=== PATIENT | female | born 1930 | race American Indian/Alaskan Native ===

== ENCOUNTER 2016-10-26 23:48 | Emergency (ER) | payer MEDICARE, MEDICAID ==
[2016-10-26 23:58] VITALS: BP 148/66
[2016-10-27] MEDS ORDERED: Naproxen 500 MG Tab PO ONE (00:23)
--- NOTE | 2016-10-27 00:28 | EDM.PDOC ---
ED HPI GENERAL MEDICAL PROBLEM - General Chief Complaint: Neck Problem Stated Complaint: NECK PAIN Time Seen by Provider: 10/27/16 00:28 Source of Information: Reports: Patient, Family History Limitations: Reports: No limitations - History of Present Illness INITIAL COMMENTS - FREE TEXT/NARRATIVE: This 86 yo female patient reports to the ED with right sided neck pain. The patient currently rates her pain at a 4/10. The patient reports she was in [place] earlier today and had a filter removed and replaced in the right neck vein. The patient reports her pain was about a 5/10 earlier, but she took 2 Tylenol to bring her pain down to a 4/10. The patient's family has called [facility] in [place]. [facility] reported to the family that they could do an ultrasound of the neck to look for any abnormalities, but they did not expect anything bad at this point. 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 Right Neck Pain Score (Numeric/FACES): 4 - Related Data Allergies Allergy/AdvReac Type Severity Reaction Status Date / Time No Known Allergies Allergy Verified 10/26/16 23:59 Home Meds: Home Meds Cetirizine [ZyrTEC] 1 tab PO DAILY 08/10/16 [History] Metoprolol Succinate [Toprol XL 50mg] 1 tab PO DAILY 08/10/16 [History] amLODIPine [Norvasc] 1 tab PO DAILY 08/10/16 [History] atorvaSTATin [Lipitor] 1 tab PO DAILY 08/10/16 [History] Warfarin [Coumadin] 2 mg PO DAILY 10/26/16 [History] Past Medical History - Past Health History Medical/Surgical History: Denies Medical/Surgical History Cardiovascular History: Reports: Blood clots/VTE/DVT, High cholesterol, 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 hip fx and rt. wrist. Oncologic (Cancer) History: Reports: Breast - Infectious Disease History Infectious Disease History: Reports: Chicken pox, Measles, Mumps - Past Surgical History GI Surgical History: Reports: Appendectomy Other GI Surgeries/Procedures: spleenectomy Musculoskeletal Surgical History: Reports: Hip replacement Social & Family History - Family History Family Medical History: Noncontributory - Tobacco Use Smoking Status *Q: Never Smoker Years of Tobacco use: 60 Packs/Tins Daily: 0.2 Second Hand Smoke Exposure: No - Caffeine Use Caffeine Use: Reports: Coffee - Recreational Drug Use Recreational Drug Use: No ED ROS GENERAL - Review of Systems Review Of Systems: ROS reveals no pertinent complaints other than HPI. ED EXAM, GENERAL - Physical Exam Exam: See Below Exam Limited By: No limitations General Appearance: alert, WD/WN, mild distress, thin Eye Exam: bilateral eye: EOMI, normal inspection, PERRL Ears: normal external exam, normal canal, hearing grossly normal, normal TMs Nose: normal inspection, normal mucosa, no blood Throat/Mouth: Normal inspection, Normal lips, Normal teeth, Normal gums, Normal oropharynx, Normal voice, No airway compromise Head: atraumatic, normocephalic Neck: supple, tender lateral (near surgical site ), other (there was some mild swelling over the area. Auscultation of the neck did not reveal any abnormalities.) Respiratory/Chest: no respiratory distress, lungs clear, normal breath sounds, no accessory muscle use, chest non-tender Cardiovascular: normal peripheral pulses, regular rate, rhythm, no edema, no gallop, no JVD, no murmur, no rub GI/Abdominal: normal bowel sounds, soft, non tender, no organomegaly, no distention, no abnormal bruit, no mass (Female) Exam: Deferred Rectal (Female) Exam: Deferred Extremities: normal inspection, normal range of motion, non-tender, normal capillary refill, no pedal edema Neurological: alert, oriented, CN II-XII intact, normal cognition, normal gait, normal reflexes, no motor/sensory deficits Psychiatric: normal affect, normal mood Skin Exam: Warm, Dry, Intact, Normal color, No rash Lymphatic: no adenopathy Course - Vital Signs Last Recorded V/S: Last Vital Signs Temp 37.2 C 10/26/16 23:51 Pulse 71 10/26/16 23:51 Resp 18 10/26/16 23:51 BP 148/66 H 10/26/16 23:51 Pulse Ox 94 L 10/26/16 23:51 - Orders/Labs/Meds Meds: Medications Discontinued Medications Generic Name Dose Route Start Last Admin Trade Name Pj PRN Reason Stop Dose Admin Naproxen 500 mg 10/27/16 00:23 Naprosyn PO 10/27/16 00:24 ONETIME ONE Departure - Departure Time of Disposition: 00:24 Disposition: Home, Self-Care 01 Condition: fair Clinical Impression: Neck pain on right side Forms: ED Department Discharge Care Plan Goals: The patient and family were advised of the examination results during the visit. The patient was given an oral dose of Naproxen while in the ED. The patient was encouraged to continue to use the ice pack. If the patient has any additional symptoms or further concerns, the patient should follow-up with her primary care facility or return to the emergency department.
== END 2016-10-27 00:33 | disposition home or self-care (01) ==
LOC: DL.ED 23:48
DX: M54.2 Cervicalgia (principal); E78.00 Pure hypercholesterolemia, unspecified; I10 Essential (primary) hypertension; Z79.01 Long term (current) use of anticoagulants; Z79.899 Other long term (current) drug therapy; Z90.49 Acquired absence of other specified parts of digestive tract
CPT/HCPCS: 99283; A9270; 99282

== ENCOUNTER 2019-06-19 08:10 | Inpatient (IN) | payer MEDICARE, MEDICAID ==
--- NOTE | 2019-06-19 11:56 | PCM.HP ---
H&P History of Present Illness - General Date of Service: 06/19/19 - History of Present Illness Initial Comments - Free Text/Narative: Patient transferred from [place]. Was admitted with sepsis secondary to acute cholecystitis. Blood culture was positive and infectious disease consulted. Has been on intravenous antibiotics. Patient was considered very sick and could not have surgery. He ended up having placement of cholecystostomy tube. This was recommended by general surgery. Patient's hospitalization was complicated by development of pneumonia, bilateral pleural effusion and C. difficile colitis. Patient is admitted to swing bed for continuation of intravenous antibiotics and physical/occupational therapy. Patient will continue with intravenous antibiotics for another 8 days. - Related Data Allergies/Adverse Reactions: Allergies Allergy/AdvReac Type Severity Reaction Status Date / Time tramadol Allergy Hallucinati Verified 06/19/19 09:23 ons Home Medications: Home Meds Cetirizine [ZyrTEC] 10 mg PO BEDTIME PRN 08/10/16 [History] Metoprolol Succinate [Toprol XL 50mg] 50 mg PO DAILY 08/10/16 [History] amLODIPine [Norvasc] 5 mg PO DAILY 08/10/16 [History] atorvaSTATin [Lipitor] 10 mg PO DAILY 08/10/16 [History] Acetaminophen [Acetaminophen Extra Strength] 500 mg PO BID PRN 06/19/19 [History ] Enoxaparin Sodium [Lovenox] 30 mg SQ DAILY 06/19/19 [History] Levothyroxine 12.5 mcg PO ACBREAKFAST 06/19/19 [History] Sennosides/Docusate Sodium [Senna-S] 1 tab PO BID PRN 06/19/19 [History] Vancomycin [Vancomycin 50 MG/ML Soln] 125 mg PO QID 06/19/19 [History] Warfarin [Coumadin] 3 mg PO DAILY 06/19/19 [History] Past Medical History - Past Health History Medical/Surgical History: Denies Medical/Surgical History Cardiovascular History: Reports: Blood Clots/VTE/DVT, High Cholesterol, 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 hip fx and rt. wrist. Hematologic History: Reports: Blood Transfusion(s) Oncologic (Cancer) History: Reports: Breast - Infectious Disease History Infectious Disease History: Reports: C-Difficile, Chicken Pox, Measles, Mumps - Past Surgical History GI Surgical History: Reports: Appendectomy, Other (See Below) Other GI Surgeries/Procedures: spleenectomy; cholecystitis- stent and biliary drain placed-not surgical candidate Musculoskeletal Surgical History: Reports: Hip Replacement Social & Family History - Family History Family Medical History: Noncontributory - Tobacco Use Smoking Status *Q: Former Smoker Used Tobacco, but Quit: Yes Month/Year Tobacco Last Used: 2012 Second Hand Smoke Exposure: No - Caffeine Use Caffeine Use: Reports: Coffee - Recreational Drug Use Recreational Drug Use: No H&P Review of Systems - Review of Systems: Review Of Systems: See Below General: Reports: No Symptoms, Malaise, Weakness Cardiovascular: Reports: No Symptoms Gastrointestinal: Reports: Abdominal Pain Musculoskeletal: Reports: No Symptoms Skin: Reports: No Symptoms Psychiatric: Reports: No Symptoms Hematologic/Lymphatic: Reports: No Symptoms Exam - Exam Exam: See Below - Vital Signs Vital Signs: Last Vital Signs Temp 37.1 C 06/19/19 11:08 Pulse 88 06/19/19 11:08 Resp 20 06/19/19 11:08 BP 125/56 L 06/19/19 11:08 Pulse Ox 95 06/19/19 11:08 Weight: 45.813 kg - Exam General: Alert, Oriented, Cooperative Neck: Supple Lungs: Clear to Auscultation, Normal Respiratory Effort Cardiovascular: Regular Rate, Regular Rhythm GI/Abdominal Exam: Normal Bowel Sounds, Soft, Non-Tender, No Organomegaly, No Distention, No Abnormal Bruit, No Mass, Pelvis Stable, Other (He has a cholecystostomy tube in place) Back Exam: Normal Inspection, Full Range of Motion, NT Extremities: Normal Inspection, Normal Range of Motion, Non-Tender, No Pedal Edema, Normal Capillary Refill Skin: Warm, Dry, Intact Psychiatric: Alert, Normal Affect, Normal Mood Problem List Initiated/Reviewed/Updated: Yes Assessment/Plan Comment:: Acute cholecystitis/Choledocholithiasis, possible cholangitis -Patient presented with right upper quadrant pain, nausea, emesis, developed fever of 100.8. Elevated LFTs and leukocytosis of 14,000. CT scan suggestive of cholecystitis. Bilirubin elevation of 1.8 with, now normalized alkaline phosphatase suggestive of past stone or sludge. -Got RUQ US, showed large avascular gallbladder mass/sludgeball with gallbladder wall thickening and wall hyperemia. Gallbladder wall thickness measures 4.3 mm. Small amount of pericholecystic fluid. Negative sonographic Culver's sign. -Got MRCP, showed choledocholithiasis with a solitary 2 mm stone in the distal common bileduct just proximal to the ampulla. Associated stable mild biliary ductal dilatation. Mild dilatation of distal main pancreatic duct is also noted. -Surgery consulted -GI consulted, ERCP done with stent placement -Surgery thinks she is too high risk for sugery, HIDA scan suggestive of cholecystitis. IR consulted, now s/p drainage. -needs stent removed in 2-3 months -Bile culturesgrowing2 different strains of Klebsiella pneumonia and enterococcus faecium -ContinueZosyn: plan is to continue for 10-14 from cholecystostomy tube placement (06/14) PICC line placed Sepsis Blood culture was positive Pancreatitis -From the ERCP. Lipase elevated. Treated conservatively Hematemesis Was seen by GI. EGD normal obtain EGD Acute Hypoxemic Respiratory Failure Acute diastolic CHF Bilateral pneumonia -New 06/08/19. Had CTA with bilateral upper lobe and LEFT lower lobe pneumonia. Bilateral lower lobe mucus plugging with complete collapse of the RIGHT lower lobe, partial collapse of the LEFT lower lobe and subsegmental upper lobe atelectasis. Moderate to large bilateral pleural effusions. IV zosyn for another 8 days C diff diarrhea -Continue oralVancomycin for 1 week after stopping IV antibiotics Hx of Acute Blood Loss Anemia -2017. EGD normal. Hgb was 4. Required multiple blood transfusion. Etiology never found. Follows with Dr Castañeda for [facility]. Hx of pulmonary embolism on Coumadin -Dx 2016.On warfarin (reversing INR for tentative IR and surgery procedures) Hypothyroidism -Continue home Synthroid Hypertension Metoprolol
[2019-06-19] MEDS ORDERED: Ondansetron 4 MG Tab.DIS PO PRN (12:06)
[2019-06-19] MEDS ORDERED: Acetaminophen 325 MG Tab PO PRN (12:06)
[2019-06-19] MEDS ORDERED: Acetaminophen/HYDROcodone 325-10 MG Tab PO PRN (12:06)
[2019-06-19] MEDS ORDERED: Docusate Sodium 100 MG Cap PO PRN (12:06)
[2019-06-19] MEDS ORDERED: Loratadine 10 MG Tab PO PRN (12:13)
[2019-06-19] MEDS ORDERED: Vancomycin 125 MG Cap PO SCH (13:00)
[2019-06-19] MEDS: Piperacillin/Tazobactam 3.375 GM in Sodium Chloride 0.9% 100 ML IV SCH ×2 (13:51→22:11)
[2019-06-19] MEDS ORDERED: Warfarin 2 MG Tab PO ONE (14:00)
[2019-06-19] MEDS: Vancomycin 125 MG Cap PO SCH ×2 (17:36→22:05)
[2019-06-19] MEDS ORDERED: MAG HYDROX PO PRN ×3 (20:43)
[2019-06-19] MEDS ORDERED: ALUM HYDROX PO PRN ×3 (20:43)
[2019-06-19] MEDS ORDERED: LIDOCAINE PO PRN ×3 (20:43)
[2019-06-19] MEDS ORDERED: DIPHENHYDRAMINE PO PRN ×3 (20:43)
[2019-06-19] MEDS ORDERED: SIMETH PO PRN ×3 (20:43)
[2019-06-19] MEDS: atorvaSTATin 10 MG Tab PO SCH (22:05)
[2019-06-19] MEDS: Enoxaparin 30 MG/0.3 ML Syringe SUBCUT SCH (22:06)
[2019-06-19] MEDS ORDERED: Lidocaine 2% 30 ML, Alum Hydrox/Mag Hydrox/Simeth 30 ML, diphenhydrAMINE 75 MG PO PRN ×3 (23:09)
[2019-06-20] MEDS: Piperacillin/Tazobactam 3.375 GM in Sodium Chloride 0.9% 100 ML IV SCH ×3 (05:59→22:11)
[2019-06-20] MEDS: Levothyroxine 25 MCG Tab PO SCH (06:10)
[2019-06-20] MEDS ORDERED: Enoxaparin 30 MG/0.3 ML Syringe SUBCUT SCH (09:00)
[2019-06-20] MEDS: Vancomycin 125 MG Cap PO SCH ×4 (09:39→22:21)
[2019-06-20] MEDS: amLODIPine 5 MG Tab PO SCH (09:39)
[2019-06-20] MEDS: Enoxaparin 30 MG/0.3 ML Syringe SUBCUT SCH ×2 (09:40→22:21)
[2019-06-20] MEDS: Metoprolol Succinate 50 MG Tab.ER PO SCH (09:40)
[2019-06-20] MEDS ORDERED: Warfarin 5 MG Tab PO ONE (14:00)
[2019-06-20] MEDS ORDERED: Warfarin 2 MG Tab PO ONE (14:00)
[2019-06-20] MEDS: atorvaSTATin 10 MG Tab PO SCH (22:21)
[2019-06-21] MEDS: Piperacillin/Tazobactam 3.375 GM in Sodium Chloride 0.9% 100 ML IV SCH ×3 (06:02→21:50)
[2019-06-21] MEDS: Levothyroxine 25 MCG Tab PO SCH (06:05)
[2019-06-21] MEDS: Vancomycin 125 MG Cap PO SCH ×4 (09:38→20:35)
[2019-06-21] MEDS: amLODIPine 5 MG Tab PO SCH (09:39)
[2019-06-21] MEDS: Metoprolol Succinate 50 MG Tab.ER PO SCH (09:39)
[2019-06-21] MEDS: Enoxaparin 30 MG/0.3 ML Syringe SUBCUT SCH ×2 (09:40→20:36)
[2019-06-21] MEDS: Sodium Chloride 0.9% 10 ML Syringe FLUSH PRN ×2 (13:58→14:35)
[2019-06-21] MEDS ORDERED: Warfarin 2 MG Tab PO ONE (14:00)
[2019-06-21] MEDS: atorvaSTATin 10 MG Tab PO SCH (20:35)
[2019-06-22] MEDS: Levothyroxine 25 MCG Tab PO SCH (06:12)
[2019-06-22] MEDS: Piperacillin/Tazobactam 3.375 GM in Sodium Chloride 0.9% 100 ML IV SCH ×3 (06:12→21:01)
[2019-06-22] MEDS: Vancomycin 125 MG Cap PO SCH ×4 (08:58→20:58)
[2019-06-22] MEDS: Metoprolol Succinate 50 MG Tab.ER PO SCH (08:58)
[2019-06-22] MEDS: Enoxaparin 30 MG/0.3 ML Syringe SUBCUT SCH (08:59)
[2019-06-22] MEDS: amLODIPine 5 MG Tab PO SCH (08:59)
[2019-06-22] MEDS: Sodium Chloride 0.9% 10 ML Syringe FLUSH PRN ×2 (08:59→15:02)
[2019-06-22] MEDS ORDERED: Warfarin 2 MG Tab PO ONE (14:00)
[2019-06-22] MEDS: atorvaSTATin 10 MG Tab PO SCH (20:58)
[2019-06-23] MEDS: Levothyroxine 25 MCG Tab PO SCH (05:32)
[2019-06-23] MEDS: Piperacillin/Tazobactam 3.375 GM in Sodium Chloride 0.9% 100 ML IV SCH ×3 (05:33→21:02)
[2019-06-23] MEDS: amLODIPine 5 MG Tab PO SCH (09:03)
[2019-06-23] MEDS: Metoprolol Succinate 50 MG Tab.ER PO SCH (09:04)
[2019-06-23] MEDS: Vancomycin 125 MG Cap PO SCH ×4 (09:05→21:03)
[2019-06-23] MEDS ORDERED: Warfarin 2 MG Tab PO ONE (14:00)
[2019-06-23] MEDS: atorvaSTATin 10 MG Tab PO SCH (21:03)
[2019-06-24] MEDS: Levothyroxine 25 MCG Tab PO SCH (05:37)
[2019-06-24] MEDS: Piperacillin/Tazobactam 3.375 GM in Sodium Chloride 0.9% 100 ML IV SCH ×3 (05:37→21:46)
[2019-06-24] MEDS: amLODIPine 5 MG Tab PO SCH (09:15)
[2019-06-24] MEDS: Metoprolol Succinate 50 MG Tab.ER PO SCH (09:15)
[2019-06-24] MEDS: Vancomycin 125 MG Cap PO SCH ×4 (09:16→20:50)
[2019-06-24] MEDS ORDERED: Warfarin 2 MG Tab PO ONE (14:00)
[2019-06-24] MEDS: Sodium Chloride 0.9% 10 ML Syringe FLUSH PRN ×2 (14:58→21:46)
[2019-06-24] MEDS: atorvaSTATin 10 MG Tab PO SCH (20:50)
[2019-06-25] MEDS: Levothyroxine 25 MCG Tab PO SCH (05:33)
[2019-06-25] MEDS: Piperacillin/Tazobactam 3.375 GM in Sodium Chloride 0.9% 100 ML IV SCH ×3 (05:35→21:36)
[2019-06-25] MEDS: Sodium Chloride 0.9% 10 ML Syringe FLUSH PRN ×4 (05:35→21:36)
[2019-06-25] MEDS: Vancomycin 125 MG Cap PO SCH ×4 (08:48→21:31)
[2019-06-25] MEDS: Metoprolol Succinate 50 MG Tab.ER PO SCH (08:48)
[2019-06-25] MEDS: amLODIPine 5 MG Tab PO SCH (08:48)
--- NOTE | 2019-06-25 10:15 | PCM.PN ---
- General Info Date of Service: 06/25/19 Admission Dx/Problem (Free Text): Cholecystitis status post cholecystostomy Subjective Update: Patient feels better. She reported some throat discomfort, and patient and family think is related to intubation during previous hospital stay. Patient continues to have some pain at the site of the drain in her abdominal wall. She feels a little stronger. She was seen by outpatient ID today, and she will need another week of IV antibiotics. - Patient Data Vitals - Most Recent: Last Vital Signs Temp 36.2 C 06/25/19 07:49 Pulse 81 06/25/19 08:48 Resp 24 H 06/25/19 07:49 BP 134/65 06/25/19 08:48 Pulse Ox 96 06/25/19 07:49 Weight - Most Recent: 46.085 kg I&O - Last 24 Hours: Intake & Output 06/24/19 06/25/19 06/25/19 22:59 06:59 14:59 Intake Total 409 201 Output Total 15 10 20 Balance 394 191 -20 Lab Results Last 24 Hours: Laboratory Results - last 24 hr 06/25/19 Range/Units 06:55 PT 25.5 H (9.0-12.0) SEC INR 2.6 H (0.9-1.2) Med Orders - Current: Current Medications Acetaminophen (Tylenol) 650 mg PO Q4H PRN PRN Reason: Pain (Mild 1-3)/fever Hydrocodone Bitart/Acetaminophen ([place] 325-10 Mg) 1 tab PO Q4H PRN PRN Reason: Pain (moderate 4-6) Amlodipine Besylate (Norvasc) 5 mg PO DAILY [facility] Last Admin: 06/25/19 08:48 Dose: 5 mg Atorvastatin Calcium (Lipitor) 10 mg PO BEDTIME [facility] Last Admin: 06/24/19 20:50 Dose: 10 mg Lidocaine HCl 30 ml/ Al Hydroxide/Mg Hydroxide 30 ml/Diphenhydramine HCl 75 mg 0 ml PO Q4H PRN PRN Reason: SORE MOUTH Piperacillin Sod/Tazobactam (Sod 3.375 gm/ Sodium Chloride) 100 mls @ 200 mls/ hr IV Q8HR [facility] Stop: 06/28/19 06:29 Last Infusion: 06/25/19 06:21 Dose: Infused Levothyroxine Sodium (Levothyroxine) 12.5 mcg PO ACBREAKFAST [facility] Last Admin: 06/25/19 05:33 Dose: 12.5 mcg Loratadine (Claritin) 10 mg PO BEDTIME PRN PRN Reason: Allergies Metoprolol Succinate (Toprol Xl) 50 mg PO DAILY [facility] Last Admin: 06/25/19 08:48 Dose: 50 mg Ondansetron HCl (Zofran Odt) 4 mg PO Q6H PRN PRN Reason: nausea, able to take PO Senna/Docusate Sodium (Senna Plus) 1 tab PO BID PRN PRN Reason: Constipation Sodium Chloride (Saline Flush) 10 ml FLUSH ASDIRECTED PRN PRN Reason: Keep Vein Open Last Admin: 06/25/19 08:49 Dose: 10 ml Vancomycin HCl (Vancomycin) 125 mg PO QID [facility] Last Admin: 06/25/19 08:48 Dose: 125 mg Warfarin Sodium (Pharmacy To Dose - Warfarin) 1 dose .XX ASDIRECTED [facility] Discontinued Medications Diphenhydramine HCl 75 mg/ Al Hydroxide/Mg Hydroxide 30 ml/Lidocaine HCl 30 ml 0 mg PO Q4H PRN PRN Reason: SORE MOUTH Last Admin: 06/19/19 22:33 Dose: 5 ml Docusate Sodium (Colace) 100 mg PO BID PRN PRN Reason: Constipation Enoxaparin Sodium (Lovenox) 30 mg SUBCUT DAILY [facility] Enoxaparin Sodium (Lovenox) 30 mg SUBCUT Q12HR [facility] Stop: 06/22/19 09:01 Last Admin: 06/22/19 08:59 Dose: 30 mg Vancomycin HCl (Vancomycin) 125 mg PO QID [facility] Last Admin: 06/19/19 13:48 Dose: 125 mg Warfarin Sodium (Coumadin) 4 mg PO ONETIME ONE Stop: 06/19/19 14:01 Last Admin: 06/19/19 13:48 Dose: 4 mg Warfarin Sodium (Coumadin) 4 mg PO ONETIME ONE Stop: 06/20/19 14:01 Last Admin: 06/20/19 14:41 Dose: 4 mg Warfarin Sodium (Coumadin) 4 mg PO ONETIME ONE Stop: 06/21/19 14:01 Last Admin: 06/21/19 13:57 Dose: 4 mg Warfarin Sodium (Coumadin) 4 mg PO ONETIME ONE Stop: 06/22/19 14:01 Last Admin: 06/22/19 15:04 Dose: 4 mg Warfarin Sodium (Coumadin) 4 mg PO ONETIME ONE Stop: 06/23/19 14:01 Last Admin: 06/23/19 14:28 Dose: 4 mg Warfarin Sodium (Coumadin) 4 mg PO ONETIME ONE Stop: 06/24/19 14:01 Last Admin: 06/24/19 14:16 Dose: 4 mg - Exam General: Alert, Oriented Lungs: Clear to Auscultation, Normal Respiratory Effort Cardiovascular: Murmurs (Faint) GI/Abdominal Exam: Normal Bowel Sounds, Soft, Non-Tender, Other (Drain in place) Extremities: Normal Inspection, No Pedal Edema Skin: Warm, Dry, Intact Neurological: No New Focal Deficit Psy/Mental Status: Alert, Normal Affect, Normal Mood - Problem List Review Problem List Initiated/Reviewed/Updated: Yes - Plan Plan:: Acute cholecystitis/Choledocholithiasis, possible cholangitis -Patient presented with right upper quadrant pain, nausea, emesis, developed fever of 100.8. Elevated LFTs and leukocytosis of 14,000. CT scan suggestive of cholecystitis. Bilirubin elevation of 1.8 with, now normalized alkaline phosphatase suggestive of past stone or sludge. -Got RUQ US, showed large avascular gallbladder mass/sludgeball with gallbladder wall thickening and wall hyperemia. Gallbladder wall thickness measures 4.3 mm. Small amount of pericholecystic fluid. Negative sonographic Culver's sign. -Got MRCP, showed choledocholithiasis with a solitary 2 mm stone in the distal common bileduct just proximal to the ampulla. Associated stable mild biliary ductal dilatation. Mild dilatation of distal main pancreatic duct is also noted. -Surgery consulted, found patient to be too high risk -GI consulted, status post ERCP with stent placement -needs stent removed in 2-3 months -Bile culturesgrowing2 different strains of Klebsiella pneumonia and enterococcus faecium -Continue on Zosyn, follow-up with outpatient ID Pancreatitis -From the ERCP. Lipase elevated. Treated conservatively Acute Hypoxemic Respiratory Failure Acute diastolic CHF Bilateral pneumonia -New 06/08/19. Had CTA with bilateral upper lobe and LEFT lower lobe pneumonia. Bilateral lower lobe mucus plugging with complete collapse of the RIGHT lower lobe, partial collapse of the LEFT lower lobe and subsegmental upper lobe atelectasis. Moderate to large bilateral pleural effusions. Currently on Zosyn C diff diarrhea -Continue oralVancomycin for 1 week after stopping IV antibiotics Hx of Acute Blood Loss Anemia -2017. EGD normal. Hgb was 4. Required multiple blood transfusion. Etiology never found. Follows with Dr Castañeda for [facility]. Hx of pulmonary embolism on Coumadin -Dx 2016.On warfarin (reversing INR for tentative IR and surgery procedures) Hypothyroidism -Continue home Synthroid Hypertension Metoprolol
[2019-06-25] MEDS ORDERED: Warfarin 2 MG Tab PO ONE (14:00)
[2019-06-25] MEDS ORDERED: Albuterol/Ipratropium 3.0-0.5 MG/3 ML Neb Soln NEB PRN (17:19)
[2019-06-25] MEDS: atorvaSTATin 10 MG Tab PO SCH (21:31)
[2019-06-26] MEDS: Piperacillin/Tazobactam 3.375 GM in Sodium Chloride 0.9% 100 ML IV SCH ×3 (05:57→21:34)
[2019-06-26] MEDS: Sodium Chloride 0.9% 10 ML Syringe FLUSH PRN ×3 (05:58→13:35)
[2019-06-26] MEDS: Levothyroxine 25 MCG Tab PO SCH (06:00)
[2019-06-26] MEDS: amLODIPine 5 MG Tab PO SCH (09:44)
[2019-06-26] MEDS: Metoprolol Succinate 50 MG Tab.ER PO SCH (09:44)
[2019-06-26] MEDS: Vancomycin 125 MG Cap PO SCH ×4 (09:45→21:34)
[2019-06-26] MEDS ORDERED: Warfarin 2 MG Tab PO ONE (14:00)
[2019-06-26] MEDS: atorvaSTATin 10 MG Tab PO SCH (21:34)
[2019-06-27] MEDS: Levothyroxine 25 MCG Tab PO SCH (06:19)
[2019-06-27] MEDS: Piperacillin/Tazobactam 3.375 GM in Sodium Chloride 0.9% 100 ML IV SCH ×3 (06:20→21:30)
[2019-06-27] MEDS: amLODIPine 5 MG Tab PO SCH (09:04)
[2019-06-27] MEDS: Metoprolol Succinate 50 MG Tab.ER PO SCH (09:04)
[2019-06-27] MEDS: Vancomycin 125 MG Cap PO SCH ×4 (09:04→21:30)
[2019-06-27] MEDS: Sodium Chloride 0.9% 10 ML Syringe FLUSH PRN ×2 (09:40→13:28)
[2019-06-27] MEDS ORDERED: Warfarin 2 MG Tab PO ONE (14:00)
[2019-06-27] MEDS: atorvaSTATin 10 MG Tab PO SCH (21:30)
[2019-06-28] MEDS: Levothyroxine 25 MCG Tab PO SCH (05:34)
[2019-06-28] MEDS: Piperacillin/Tazobactam 3.375 GM in Sodium Chloride 0.9% 100 ML IV SCH ×3 (05:38→22:22)
[2019-06-28] MEDS: Vancomycin 125 MG Cap PO SCH ×5 (07:51→20:47)
[2019-06-28] MEDS: amLODIPine 5 MG Tab PO SCH ×2 (07:51→08:02)
[2019-06-28] MEDS: Metoprolol Succinate 50 MG Tab.ER PO SCH ×2 (07:51→08:03)
[2019-06-28] MEDS: atorvaSTATin 10 MG Tab PO SCH (20:47)
[2019-06-28] MEDS: Sodium Chloride 0.9% 10 ML Syringe FLUSH PRN (22:22)
[2019-06-29] MEDS: Levothyroxine 25 MCG Tab PO SCH (05:44)
[2019-06-29] MEDS: Sodium Chloride 0.9% 10 ML Syringe FLUSH PRN ×2 (05:46→13:31)
[2019-06-29] MEDS: Piperacillin/Tazobactam 3.375 GM in Sodium Chloride 0.9% 100 ML IV SCH ×3 (05:46→21:28)
[2019-06-29] MEDS: amLODIPine 5 MG Tab PO SCH (08:35)
[2019-06-29] MEDS: Vancomycin 125 MG Cap PO SCH ×4 (08:35→21:30)
[2019-06-29] MEDS: Metoprolol Succinate 50 MG Tab.ER PO SCH (08:36)
[2019-06-29] MEDS: atorvaSTATin 10 MG Tab PO SCH (21:30)
[2019-06-30] MEDS: Piperacillin/Tazobactam 3.375 GM in Sodium Chloride 0.9% 100 ML IV SCH ×3 (06:15→21:44)
[2019-06-30] MEDS: Levothyroxine 25 MCG Tab PO SCH (06:17)
[2019-06-30] MEDS: amLODIPine 5 MG Tab PO SCH (08:46)
[2019-06-30] MEDS: Metoprolol Succinate 50 MG Tab.ER PO SCH (08:47)
[2019-06-30] MEDS: Vancomycin 125 MG Cap PO SCH ×4 (08:47→21:48)
[2019-06-30] MEDS: Sodium Chloride 0.9% 10 ML Syringe FLUSH PRN (13:51)
[2019-06-30] MEDS ORDERED: Carboxymethylcellulose Sodium 1% Ophth Gel 0.4 ML UD EYEBOTH PRN (19:36)
[2019-06-30] MEDS: atorvaSTATin 10 MG Tab PO SCH (21:48)
[2019-07-01] MEDS: Piperacillin/Tazobactam 3.375 GM in Sodium Chloride 0.9% 100 ML IV SCH ×3 (05:55→22:15)
[2019-07-01] MEDS: Levothyroxine 25 MCG Tab PO SCH (05:57)
[2019-07-01] MEDS: amLODIPine 5 MG Tab PO SCH (08:23)
[2019-07-01] MEDS: Metoprolol Succinate 50 MG Tab.ER PO SCH (08:23)
[2019-07-01] MEDS: Vancomycin 125 MG Cap PO SCH ×4 (08:24→22:11)
[2019-07-01] MEDS: Sodium Chloride 0.9% 10 ML Syringe FLUSH PRN ×2 (14:39→22:15)
[2019-07-01] MEDS ORDERED: Carboxymethylcellulose Sodium 1% Ophth Gel 0.4 ML UD EYEBOTH PRN (14:47)
[2019-07-01] MEDS: atorvaSTATin 10 MG Tab PO SCH (22:12)
[2019-07-02] MEDS: Levothyroxine 25 MCG Tab PO SCH (05:44)
[2019-07-02] MEDS: Sodium Chloride 0.9% 10 ML Syringe FLUSH PRN (05:45)
[2019-07-02] MEDS: Piperacillin/Tazobactam 3.375 GM in Sodium Chloride 0.9% 100 ML IV SCH (05:45)
[2019-07-02 06:54] LABS: ANION GAP 9.4; CHLORIDE,CL 107 mmol/L (101-111); SODIUM,NA 139 mmol/L (135-145)
[2019-07-02 08:16] VITALS: BP 143/69; PULSE 87
[2019-07-02] MEDS: Metoprolol Succinate 50 MG Tab.ER PO SCH (08:48)
[2019-07-02] MEDS: amLODIPine 5 MG Tab PO SCH (08:48)
[2019-07-02] MEDS: Vancomycin 125 MG Cap PO SCH ×2 (08:53→13:40)
--- NOTE | 2019-07-02 15:15 | PCM.DCSUM1 ---
Discharge Summary - Hospital Course Free Text/Narrative:: Acute cholecystitis/Choledocholithiasis, possible cholangitis -Patient presented with right upper quadrant pain, nausea, emesis, developed fever of 100.8. Elevated LFTs and leukocytosis of 14,000. CT scan suggestive of cholecystitis. Bilirubin elevation of 1.8 with, now normalized alkaline phosphatase suggestive of past stone or sludge. -Got RUQ US, showed large avascular gallbladder mass/sludgeball with gallbladder wall thickening and wall hyperemia. Gallbladder wall thickness measures 4.3 mm. Small amount of pericholecystic fluid. Negative sonographic Culver's sign. -Got MRCP, showed choledocholithiasis with a solitary 2 mm stone in the distal common bileduct just proximal to the ampulla. Associated stable mild biliary ductal dilatation. Mild dilatation of distal main pancreatic duct is also noted. -Surgery consulted, found patient to be too high risk -GI consulted, status post ERCP with stent placement -needs stent removed in 2-3 months -Bile culturesgrowing2 different strains of Klebsiella pneumonia and enterococcus faecium -was treated with Zosyn, finished tx. picc line removed Pancreatitis -From the ERCP. Lipase elevated. Treated conservatively Acute Hypoxemic Respiratory Failure Acute diastolic CHF Bilateral pneumonia -New 06/08/19. Had CTA with bilateral upper lobe and LEFT lower lobe pneumonia. Bilateral lower lobe mucus plugging with complete collapse of the RIGHT lower lobe, partial collapse of the LEFT lower lobe and subsegmental upper lobe atelectasis. Moderate to large bilateral pleural effusions. was treated with Zosyn C diff diarrhea -Continue oralVancomycin for 10 more days after stopping IV antibiotics Hx of Acute Blood Loss Anemia -2017. EGD normal. Hgb was 4. Required multiple blood transfusion. Etiology never found. Follows with Dr Castañeda for ELEANOR. Hx of pulmonary embolism on Coumadin -Dx 2017.On warfarin Hypothyroidism -Continue home Synthroid Hypertension Treat with metoprolol Diagnosis: Stroke: No - Discharge Data Discharge Date: 07/02/19 Discharge Disposition: Home, Self-Care 01 Condition: Good - Referral to Home Health Primary Care Physician: Shimon Mobley NP - Patient Summary/Data Consults: Consultations 06/19/19 12:06 OT Evaluation and Treatment [CONS] Routine PT Evaluation and Treatment [CONS] Routine - Patient Instructions Diet: Heart Healthy Diet Activity: As Tolerated - Discharge Plan *PRESCRIPTION DRUG MONITORING PROGRAM REVIEWED*: Not Applicable *COPY OF PRESCRIPTION DRUG MONITORING REPORT IN PATIENT MIKE: Not Applicable Prescriptions/Med Rec: Vancomycin [Vancomycin 50 MG/ML Soln] 125 mg PO QID #40 bottle Home Medications: Home Meds Cetirizine [ZyrTEC] 10 mg PO BEDTIME PRN 08/10/16 [History] Metoprolol Succinate [Toprol XL 50mg] 50 mg PO DAILY 08/10/16 [History] amLODIPine [Norvasc] 5 mg PO DAILY 08/10/16 [History] atorvaSTATin [Lipitor] 10 mg PO BEDTIME 08/10/16 [History] Acetaminophen [Acetaminophen Extra Strength] 500 mg PO BID PRN 06/19/19 [History ] Enoxaparin Sodium [Lovenox] 30 mg SQ Q12HR 06/19/19 [History] Levothyroxine 12.5 mcg PO ACBREAKFAST 06/19/19 [History] Sennosides/Docusate Sodium [Senna-S] 1 tab PO BID PRN 06/19/19 [History] Warfarin [Coumadin] 3 mg PO DAILY 06/19/19 [History] Vancomycin [Vancomycin 50 MG/ML Soln] 125 mg PO QID #40 bottle 07/02/19 [Rx] Patient Handouts: PICC Removal, Adult - Discharge Summary/Plan Comment DC Time >30 min.: No - General Info Date of Service: 07/02/19 Functional Status: Reports: Pain Controlled - Review of Systems General: Denies: Fever Pulmonary: Denies: Shortness of Breath Cardiovascular: Denies: Chest Pain Gastrointestinal: Denies: Abdominal Pain Genitourinary: Denies: Dysuria - Patient Data Vitals - Most Recent: Last Vital Signs Temp 36.7 C 07/02/19 08:14 Pulse 87 07/02/19 08:48 Resp 18 07/02/19 08:14 BP 143/69 H 07/02/19 08:48 Pulse Ox 92 L 07/02/19 08:14 Weight - Most Recent: 46.085 kg I&O - Last 24 hours: Intake & Output 07/02/19 07/02/19 07/02/19 06:59 14:59 22:59 Intake Total 100 Output Total 20 Balance -20 100 Lab Results - Last 24 hrs: Laboratory Results - last 24 hr 1207/02/19 07/02/19 Range/Units 05:54 05:54 05:54 WBC 7.2 (5.0-10.0) 10^3/uL RBC 3.95 L (4.2-5.4) 10^6/uL Hgb 11.5 L (12.0-16.0) g/dL Hct 35.2 L (37.0-47.0) % MCV 89.1 (80-100) fL MCH 29.1 (27.0-34.0) pg MCHC 32.7 L (33.0-35.0) g/dL Plt Count 431 (150-450) 10^3/uL Neut % (Auto) 42.4 (42.2-75.2) % Lymph % (Auto) 32.0 (20.5-50.1) % Yell % (Auto) 11.5 H (2-8) % Eos % (Auto) 14.0 H (1.0-3.0) % Baso % (Auto) 0.1 (0.0-1.0) % Add Manual Diff Yes Neutrophils % (Manual) 42 (42-75) % Band Neutrophils % 4 % Lymphocytes % (Manual) 34 (20-50) % Monocytes % (Manual) 9 H (2-8) % Eosinophils % (Manual) 11 H (1-3) % PT 21.5 H (9.0-12.0) SEC INR 2.2 H (0.9-1.2) Sodium 139 (135-145) mmol/L Potassium 3.4 L (3.6-5.0) mmol/L Chloride 107 (101-111) mmol/L Carbon Dioxide 26.0 (21.0-31.0) mmol/L Anion Gap 9.4 BUN 8 (7-18) mg/dL Creatinine 0.7 (0.6-1.3) mg/dL Est Cr Clr Drug Dosing 39.90 mL/min Estimated GFR (MDRD) > 60 Glucose 84 (74-105) mg/dL Calcium 8.5 (8.4-10.2) mg/dl Med Orders - Current: Current Medications Acetaminophen (Tylenol) 650 mg PO Q4H PRN PRN Reason: Pain (Mild 1-3)/fever Hydrocodone Bitart/Acetaminophen ([place] 325-10 Mg) 1 tab PO Q4H PRN PRN Reason: Pain (moderate 4-6) Albuterol/Ipratropium (Duoneb 3.0-0.5 Mg/3 Ml) 3 ml NEB Q6HRRT PRN PRN Reason: Shortness of Breath Last Admin: 06/25/19 18:46 Dose: 3 ml Amlodipine Besylate (Norvasc) 5 mg PO DAILY [facility] Last Admin: 07/02/19 08:48 Dose: 5 mg Artificial Tears (Refresh Celluvisc) 1 each EYEBOTH Q2H PRN PRN Reason: Itching Last Admin: 07/01/19 22:14 Dose: 1 each Atorvastatin Calcium (Lipitor) 10 mg PO BEDTIME [facility] Last Admin: 07/01/19 22:12 Dose: 10 mg Lidocaine HCl 30 ml/ Al Hydroxide/Mg Hydroxide 30 ml/Diphenhydramine HCl 75 mg 0 ml PO Q4H PRN PRN Reason: SORE MOUTH Levothyroxine Sodium (Levothyroxine) 12.5 mcg PO ACBREAKFAST [facility] Last Admin: 07/02/19 05:44 Dose: 12.5 mcg Loratadine (Claritin) 10 mg PO BEDTIME PRN PRN Reason: Allergies Metoprolol Succinate (Toprol Xl) 50 mg PO DAILY [facility] Last Admin: 07/02/19 08:48 Dose: 50 mg Ondansetron HCl (Zofran Odt) 4 mg PO Q6H PRN PRN Reason: nausea, able to take PO Senna/Docusate Sodium (Senna Plus) 1 tab PO BID PRN PRN Reason: Constipation Sodium Chloride (Saline Flush) 10 ml FLUSH ASDIRECTED PRN PRN Reason: Keep Vein Open Last Admin: 07/02/19 05:45 Dose: 10 ml Vancomycin HCl (Vancomycin) 125 mg PO QID [facility] Stop: 07/09/19 17:01 Last Admin: 07/02/19 13:40 Dose: 125 mg Warfarin Sodium (Pharmacy To Dose - Warfarin) 1 dose .XX ASDIRECTED [facility] Discontinued Medications Artificial Tears (Refresh Celluvisc) 1 each EYEBOTH ASDIRECTED PRN PRN Reason: Itching Diphenhydramine HCl 75 mg/ Al Hydroxide/Mg Hydroxide 30 ml/Lidocaine HCl 30 ml 0 mg PO Q4H PRN PRN Reason: SORE MOUTH Last Admin: 06/19/19 22:33 Dose: 5 ml Docusate Sodium (Colace) 100 mg PO BID PRN PRN Reason: Constipation Enoxaparin Sodium (Lovenox) 30 mg SUBCUT DAILY [facility] Enoxaparin Sodium (Lovenox) 30 mg SUBCUT Q12HR [facility] Stop: 06/22/19 09:01 Last Admin: 06/22/19 08:59 Dose: 30 mg Piperacillin Sod/Tazobactam (Sod 3.375 gm/ Sodium Chloride) 100 mls @ 200 mls/ hr IV Q8HR [facility] Stop: 07/02/19 06:01 Last Infusion: 07/02/19 06:20 Dose: Infused Vancomycin HCl (Vancomycin) 125 mg PO QID [facility] Last Admin: 06/19/19 13:48 Dose: 125 mg Warfarin Sodium (Coumadin) 4 mg PO ONETIME ONE Stop: 06/19/19 14:01 Last Admin: 06/19/19 13:48 Dose: 4 mg Warfarin Sodium (Coumadin) 4 mg PO ONETIME ONE Stop: 06/20/19 14:01 Last Admin: 06/20/19 14:41 Dose: 4 mg Warfarin Sodium (Coumadin) 4 mg PO ONETIME ONE Stop: 06/21/19 14:01 Last Admin: 06/21/19 13:57 Dose: 4 mg Warfarin Sodium (Coumadin) 4 mg PO ONETIME ONE Stop: 06/22/19 14:01 Last Admin: 06/22/19 15:04 Dose: 4 mg Warfarin Sodium (Coumadin) 4 mg PO ONETIME ONE Stop: 06/23/19 14:01 Last Admin: 06/23/19 14:28 Dose: 4 mg Warfarin Sodium (Coumadin) 4 mg PO ONETIME ONE Stop: 06/24/19 14:01 Last Admin: 06/24/19 14:16 Dose: 4 mg Warfarin Sodium (Coumadin) 4 mg PO ONETIME ONE Stop: 06/25/19 14:01 Last Admin: 06/25/19 13:37 Dose: 4 mg Warfarin Sodium (Coumadin) 4 mg PO ONETIME ONE Stop: 06/26/19 14:01 Last Admin: 06/26/19 13:34 Dose: 4 mg Warfarin Sodium (Coumadin) 4 mg PO ONETIME ONE Stop: 06/27/19 14:01 Last Admin: 06/27/19 13:26 Dose: 4 mg Warfarin Sodium (Coumadin) 3 mg PO ONETIME ONE Stop: 06/29/19 14:01 Last Admin: 06/29/19 13:29 Dose: 3 mg Warfarin Sodium (Coumadin) 3 mg PO ONETIME ONE Stop: 06/30/19 14:01 Last Admin: 06/30/19 13:50 Dose: 3 mg Warfarin Sodium (Coumadin) 3 mg PO ONETIME ONE Stop: 07/01/19 14:01 Last Admin: 07/01/19 14:39 Dose: 3 mg Warfarin Sodium (Coumadin) 3 mg PO ONETIME ONE Stop: 07/02/19 14:01 Last Admin: 07/02/19 13:40 Dose: 3 mg - Exam General: Reports: Alert, Oriented Neck: Reports: Supple Lungs: Reports: Clear to Auscultation, Normal Respiratory Effort Cardiovascular: Reports: Regular Rate, Regular Rhythm GI/Abdominal Exam: Normal Bowel Sounds, Soft, Non-Tender, Other (drain with green liquid) Extremities: No Pedal Edema
[2019-07-02] MEDS ORDERED: Vancomycin 125 MG Cap PO SCH (17:00)
== END 2019-07-02 15:45 | disposition home or self-care (01) | DRG 871 ==
LOC: DL.MS 10:59 → UNDOADMIN 10:59 → EEVIPCON 12:06 → DL.MS 12:06
PROVIDERS: ADMIT Hospitalist; ATTEND Internal Medicine
DX: A41.9 Sepsis, unspecified organism (principal); J18.9 Pneumonia, unspecified organism; K85.90 Acute pancreatitis without necrosis or infection, unspecified; J96.01 Acute respiratory failure with hypoxia; I50.31 Acute diastolic (congestive) heart failure; K81.0 Acute cholecystitis; J90 Pleural effusion, not elsewhere classified; A04.72 Enterocolitis due to Clostridium difficile, not specified as recurrent; I11.0 Hypertensive heart disease with heart failure; Z79.01 Long term (current) use of anticoagulants; Z88.5 Allergy status to narcotic agent; Z79.899 Other long term (current) drug therapy; Z86.711 Personal history of pulmonary embolism; E78.00 Pure hypercholesterolemia, unspecified; Z90.49 Acquired absence of other specified parts of digestive tract; Z96.649 Presence of unspecified artificial hip joint; Z87.891 Personal history of nicotine dependence; E03.9 Hypothyroidism, unspecified; Z96.89 Presence of other specified functional implants
CPT/HCPCS: 36415; 80048; 82565; 84460; 85025; 85610; 85651; 86140; 94640; 97110-GO; 97110-GP; 97116-GP; 97162-GP; 97165-GO; 97530-GO; A9270-GY; J1650; J2543; J7050; J7620-GY